=== PATIENT | female | born 1955 | race Caucasian/White ===

== ENCOUNTER 2021-09-20 14:15 | Inpatient (IN) | payer MEDICARE, OTHER ==
[~2021-09-20] VITALS: Ht 162.6 cm; Wt 127.0 kg
[2021-09-20 21:02] LABS: HEMOGLOBIN 15.3 gm/dl (12.3-15.3); RED BLOOD COUNT 5.22 M/UL (4.00-5.10)
[2021-09-20 21:03] LABS: WHITE BLOOD COUNT 34.6 K/UL (4.5-11.0)
[2021-09-21 09:22] LABS: HEMOGLOBIN 13.3 gm/dl (12.3-15.3); RED BLOOD COUNT 4.53 M/UL (4.00-5.10)
[2021-09-21] MEDS ORDERED: LORATADINE10 MG PO (11:36)
[2021-09-21] MEDS ORDERED: POTASSIUM CHLO10 MEQ PO (11:36)
[2021-09-21] MEDS ORDERED: BISOPROLOL-HCT1 EAC2 PO (11:37)
[2021-09-21] MEDS ORDERED: DICLOFENAC SODI50 MG PO (11:37)
[2021-09-21] MEDS ORDERED: MELOXICAM15 MG PO (11:37)
[2021-09-21] MEDS ORDERED: COZAAR100 MG PO (11:38)
[2021-09-21] MEDS ORDERED: NEURONTIN100 MG PO (11:38)
[2021-09-21] MEDS ORDERED: MONTELUKAST SOD10 MG PO (11:38)
[2021-09-21] MEDS ORDERED: FUROSEMIDE40 MG PO (11:39)
[2021-09-21] MEDS ORDERED: OMEPRAZOLE40 MG PO (11:39)
[2021-09-22 04:05] LABS: HEMOGLOBIN 12.3 gm/dl (12.3-15.3); RED BLOOD COUNT 4.25 M/UL (4.00-5.10)
[2021-09-22 04:06] LABS: WHITE BLOOD COUNT 19.7 K/UL (4.5-11.0)
[2021-09-23 05:32] LABS: HEMOGLOBIN 11.2 gm/dl (12.3-15.3); RED BLOOD COUNT 3.86 M/UL (4.00-5.10); WHITE BLOOD COUNT 19.6 K/UL (4.5-11.0)
[2021-09-24 02:08] LABS: HEMOGLOBIN 11.3 gm/dl (12.3-15.3); RED BLOOD COUNT 3.8 M/UL (4.00-5.10); WHITE BLOOD COUNT 13.9 K/UL (4.5-11.0)
[2021-09-25 02:06] LABS: HEMOGLOBIN 11.6 gm/dl (12.3-15.3); RED BLOOD COUNT 3.88 M/UL (4.00-5.10); WHITE BLOOD COUNT 14.3 K/UL (4.5-11.0)
[2021-09-26 02:14] LABS: HEMOGLOBIN 11.5 gm/dl (12.3-15.3); RED BLOOD COUNT 3.83 M/UL (4.00-5.10); WHITE BLOOD COUNT 17.1 K/UL (4.5-11.0)
[2021-09-27 03:20] LABS: HEMOGLOBIN 11.5 gm/dl (12.3-15.3); RED BLOOD COUNT 3.87 M/UL (4.00-5.10)
[2021-09-27 03:51] LABS: BUN/CREATININE RATIO 53 (0-10)
[2021-09-28 02:39] LABS: HEMOGLOBIN 11.6 gm/dl (12.3-15.3); RED BLOOD COUNT 3.91 M/UL (4.00-5.10); WHITE BLOOD COUNT 19.2 K/UL (4.5-11.0)
[2021-09-28 02:56] LABS: BUN/CREATININE RATIO 49 (0-10)
[2021-09-29 09:21] LABS: HEMOGLOBIN 13.1 gm/dl (12.3-15.3); WHITE BLOOD COUNT 17.9 K/UL (4.5-11.0)
[2021-09-29 09:22] LABS: RED BLOOD COUNT 4.4 M/UL (4.00-5.10)
[2021-09-29 09:45] LABS: BUN/CREATININE RATIO 50 (0-10)
[2021-09-29] MEDS ORDERED: DECADRON6 MG PO (10:33)
[2021-09-29] MEDS ORDERED: GLUCOPHAGE 500500 MG PO (10:33)
[2021-09-29] MEDS ORDERED: ELIQUIS 5 MG TAB5 MG PO (10:33)
--- NOTE | 2021-09-29 12:43 | NUR ---
PATIENT IS EXPERIENCING CONSTIPATION. GAVE ORDERED DOSE OF COLACE AND TAP WATER ENEMA. PATIENT TOLERATED ENEMA WELL AND HAD A BOWEL MOVEMENT SOON AFTER ENEMA.
[2021-09-30 05:46] LABS: HEMOGLOBIN 11.8 gm/dl (12.3-15.3); RED BLOOD COUNT 3.97 M/UL (4.00-5.10)
[2021-09-30 06:01] LABS: BUN/CREATININE RATIO 46 (0-10)
[2021-09-30 06:02] LABS: WHITE BLOOD COUNT 13.4 K/UL (4.5-11.0)
[2021-09-30] MEDS ORDERED: DECADRON6 MG PO (08:53)
[2021-10-01 07:15] LABS: HEMOGLOBIN 12.6 gm/dl (12.3-15.3); RED BLOOD COUNT 4.17 M/UL (4.00-5.10)
[2021-10-01 08:12] LABS: BUN/CREATININE RATIO 39 (0-10)
[2021-10-01] MEDS ORDERED: DECADRON6 MG PO (08:58)
[2021-10-02 07:18] LABS: BUN/CREATININE RATIO 36 (0-10); HEMOGLOBIN 12.5 gm/dl (12.3-15.3); RED BLOOD COUNT 4.16 M/UL (4.00-5.10); WHITE BLOOD COUNT 14.7 K/UL (4.5-11.0)
--- NOTE | 2021-10-02 14:51 | NUR ---
REPORT CALLED TO [facility], LORENZO D/C'D AND STAFF AWARE OF NEED TO VOID. EMS SET UP. SISTER HAS CALLED ANS IS AWARE OF DISCHARGE.
== END 2021-10-02 17:45 | DRG 177 ==
LOC: ER1 14:15 → CDU 23:26 → M/S 23:26 → CDU 09-22 10:24 → CCU 09-22 18:33 → PROG CARE 09-23 16:14 → M/S 09-26 21:00
PROVIDERS: Emergency Medicine; Internal Medicine; Internal Medicine Nephrology; ADMIT Internal Medicine
PROC: 3E0333Z Introduction of Anti-inflammatory into Peripheral Vein, Percutaneous Approach (ICD-10-PCS; principal; 2021-09-21)
PROC: 8E0ZXY6 Isolation (ICD-10-PCS; 2021-09-21)
PROC: 3E033XZ Introduction of Vasopressor into Peripheral Vein, Percutaneous Approach (ICD-10-PCS; 2021-09-21)
PROC: B24BZZZ Ultrasonography of Heart with Aorta (ICD-10-PCS; 2021-09-22)
DX: U07.1 COVID-19 (principal); J12.82 Pneumonia due to coronavirus disease 2019; J96.01 Acute respiratory failure with hypoxia; A41.89 Other specified sepsis; R65.21 Severe sepsis with septic shock; N17.0 Acute kidney failure with tubular necrosis; R57.1 Hypovolemic shock; N39.0 Urinary tract infection, site not specified; E87.2 Acidosis; Z68.42 Body mass index [BMI] 45.0-49.9, adult; E11.9 Type 2 diabetes mellitus without complications; I10 Essential (primary) hypertension; W01.0XXA Fall on same level from slipping, tripping and stumbling without subsequent striking against object, initial encounter; M25.552 Pain in left hip; M25.551 Pain in right hip; B96.1 Klebsiella pneumoniae [K. pneumoniae] as the cause of diseases classified elsewhere; J45.909 Unspecified asthma, uncomplicated; E66.01 Morbid (severe) obesity due to excess calories; I48.91 Unspecified atrial fibrillation; I08.1 Rheumatic disorders of both mitral and tricuspid valves; E86.0 Dehydration; E87.6 Hypokalemia; T38.0X5A Adverse effect of glucocorticoids and synthetic analogues, initial encounter; K59.00 Constipation, unspecified; Z79.01 Long term (current) use of anticoagulants; Z90.49 Acquired absence of other specified parts of digestive tract; Z98.51 Tubal ligation status; Z88.5 Allergy status to narcotic agent; Z88.0 Allergy status to penicillin; Z88.2 Allergy status to sulfonamides; Z88.8 Allergy status to other drugs, medicaments and biological substances; Z84.1 Family history of disorders of kidney and ureter; Z82.49 Family history of ischemic heart disease and other diseases of the circulatory system; Z74.01 Bed confinement status; Y92.009 Unspecified place in unspecified non-institutional (private) residence as the place of occurrence of the external cause
CPT/HCPCS: ECHO; 36415; 51702; 71045; 73552; 80048; 80053; 81001; 82550; 82553; 82570; 82803; 82962; 83036; 83605; 83735; 83874; 83880; 84300; 85025; 85027; 86140; 87040; 87077; 87086; 87186; 89050; 93005; 93306; 94640; 94760; 96365; 96375; 97110; 97110-GP-CQ; 97161; 97166; 97530-GP-CQ; 99284; G0378; J0456; J0696; J1100; J1170; J1644; J2405; J3475; J7030; J7040; Q9957; U0002